=== PATIENT | male | born 1985 | race Caucasian/White ===

== ENCOUNTER 2016-12-05 09:39 | Emergency (ER) | payer SELFPAY ==
[~2016-12-05] VITALS: Ht 180.3 cm; Wt 87.2 kg
[~2016-12-05 09:39] MED LIST: BENTYL10 MG PO; DIAZEPAM5 MG PO; INDOCIN25 MG PO; VICODIN,LORT1 TABLET PO
[2016-12-05] MEDS ORDERED: NORCO 5/3251 TABLET PO (11:45)
[2016-12-05] MEDS ORDERED: KEFLEX500 MG PO (11:45)
[2016-12-05 12:19] VITALS: BP 122/67
== END 2016-12-05 12:22 | disposition home or self-care (01) ==
LOC: EME 09:39
DX: S80.01XA Contusion of right knee, initial encounter (principal); S83.91XA Sprain of unspecified site of right knee, initial encounter; S70.311A Abrasion, right thigh, initial encounter; W20.8XXA Other cause of strike by thrown, projected or falling object, initial encounter; Y99.0 Civilian activity done for income or pay; F17.200 Nicotine dependence, unspecified, uncomplicated
CPT/HCPCS: 73564; 99281; 99283